=== PATIENT | male | born 1960 | race Caucasian/White ===

== ENCOUNTER → 2016-07-03 | Outpatient (CLI) | payer OTHER ==
[~2016-07-03] MED LIST: ACET-1256 PO; HYDR-4330 PO; OXYC1TAB3 PO
--- NOTE | 2016-07-03 15:13 | DIAGNOSTIC IMAGING REPORT ---
MRI right knee RIGHT LOWER EXT JOINT WITHOUT CLINICAL HISTORY: RT KNEE PAIN M25.561 STAT Right pain TECHNIQUE: MRI multi axial acquisition COMPARISON STUDY: None FINDINGS: Signal characteristics of the osseous structures are unremarkable throughout. There is no bone marrow replacing process. There is a small joint effusion. There are findings of mild peripatellar soft tissue edema. There is a small partial tear of the medial patellar retinaculum. Patellar groove is slightly shallow. There may be a trace of chondromalacia patella. There is a small synechiae of the suprapatellar bursa. Evaluation of the cruciate ligament shows the anterior as well as posterior cruciate ligament to be intact. The menisci demonstrate a normal-appearing lateral meniscus. Medial meniscus shows a very slight apical truncation. The collateral ligaments again are intact. IMPRESSION: 1. Small joint effusion with a small synechiae of the suprapatellar bursa. 2. Partial tear medial patellar retinaculum with a slight degree of chondromalacia patella. 3. Slight truncation apex mid medial meniscus. Electronically signed by: Solitario Casanova M.D. 07/03/2016 3:11 PM Dictated Date/Time: 07/03/2016 3:05 PM
== END | disposition home or self-care (01) ==
LOC: C.MRI 13:51
DX: M25.561 Pain in right knee (principal)

== ENCOUNTER → 2016-07-19 | Outpatient (CLI) | payer OTHER | END | disposition home or self-care (01) | LOC: C.CPL 14:11 | PROVIDERS: ATTEND Orthopaedic Surgery | DX: S83.231A Complex tear of medial meniscus, current injury, right knee, initial encounter (principal); X58.XXXA Exposure to other specified factors, initial encounter ==

== ENCOUNTER 2016-08-31 21:15 | Emergency (ER) | payer OTHER ==
[~2016-08-31] VITALS: Ht 172.7 cm; Wt 128.0 kg
[2016-08-31 21:23] VITALS: TEMP 36.7; Ht 172.7 cm; Wt 128.0 kg
[2016-08-31] MEDS ORDERED: ACET-1256 PO (22:15)
[2016-08-31] MEDS ORDERED: HYDR-4330 PO (22:15)
--- NOTE | 2016-08-31 22:32 | DIAGNOSTIC IMAGING REPORT ---
RIGHT KNEE 3 VIEWS CLINICAL HISTORY: right knee pain Right pain COMPARISON: None. DISCUSSION: The bones and joint spaces appear intact. There is no evidence of fracture, dislocation or bony disease. There is no evidence for soft tissue swelling. IMPRESSION: Negative study. Electronically signed by: Solitario Casanova M.D. 08/31/2016 10:31 PM Dictated Date/Time: 08/31/2016 10:28 PM
[2016-08-31 22:52] VITALS: BP 146/84; PULSE 94; O2SAT 95
[2016-08-31] MEDS ORDERED: OXYC1TAB3 PO (22:52)
[2016-08-31] MEDS ORDERED: OXYCODONE IR HOME PACK PO ONE (23:00)
--- NOTE | 2016-09-01 00:44 | EMERGENCY ROOM VISIT NOTE ---
ED Visit Note First contact with patient: 21:37 CHIEF COMPLAINT: knee pain HISTORY OF PRESENT ILLNESS: This 55-year-old male patient presents to the emergency department with pain in the right knee slowly worsening over the past 4 days. The patient has a recent history of meniscus repair of the right knee last month. The patient just returned to work 4 days ago, and is now with increased activity. He has had increased pain medially but does not report distinct injury or trauma. The patient is able to ambulate today, but this is becoming more difficult. He has not had fall or new injury. There is no significant redness or swelling. No numbness or tingling. He rates his current pain a 7/10. REVIEW OF SYSTEMS: A 6 system review of systems was completed with positives and pertinent negatives listed in the HPI. ALLERGIES: No known allergies MEDICATIONS: No chronic medications PMH: Otherwise healthy SOCIAL HISTORY: Employed and lives locally PHYSICAL EXAM: Vital Signs: Reviewed Nurse's notes, vital signs stable. GENERAL : White male, no acute distress, but appears in pain, well-developed, well- nourished. MENTAL STATUS: Alert, oriented to person place and time, and cooperative. MUSCULOSKELETAL: The right knee is not swollen. There is no ecchymosis. There is no joint effusion present. The patient is tender medially. There is medial joint line tenderness. The patella does not subluxate. Range of motion is normal. Strength of the quads and hamstrings is 5/ 5. Yoon's is negative. Vish's and Anterior Drawer tests are negative. There is no laxity with varus and valgus stressing. The foot and toes are warm and well-perfused. Dorsalis pedis pulse 2+. Sensation to pain and light touch is intact. Capillary refill less than 2 seconds. RIGHT KNEE 3 VIEWS CLINICAL HISTORY: right knee pain Right pain COMPARISON: None. DISCUSSION: The bones and joint spaces appear intact. There is no evidence of fracture, dislocation or bony disease. There is no evidence for soft tissue swelling. IMPRESSION: Negative study. EMERGENCY DEPARTMENT COURSE: Physical exam and history were performed. Nursing notes and EMR were reviewed. The patient has right knee pain and swelling worsening over the past 4 days. He does have a recent meniscus repair to this knee. X-ray was obtained and does not show acute bony M Lizbet. I discussed options of care with the patient. He will be placed in a knee immobilizer and provided crutches. The patient will be given a short course of oxycodone and instructions to follow with his orthopedist for further care and management. The patient was otherwise invited back to the ER with any new, worsening, or concerning symptoms. Current/Historical Medications Scheduled Oxycodone Immediate Rel Tab (Roxicodone Ir), 1-2 TAB PO Q6 Scheduled PRN Acetaminophen (Tylenol), 1,000 MG PO UD PRN for Pain Hydrocodone-Acetaminophen (Lortab 5-325 mg), 1-2 TABS PO Q4-6HRS PRN for Pain Allergies Coded Allergies: No Known Allergies (Verified Allergy, Unknown, 12/28/02) Vital Signs Date Time Temp Pulse Resp B/P Pulse Ox O2 Delivery O2 Flow Rate FiO2 08/31/16 22:52 94 18 146/84 95 08/31/16 21:23 36.7 104 20 161/98 94 Room Air Medications Administered Medications (Trade) Dose Ordered Sig/Raman Route Start Time Stop Time Status Last Admin Dose Admin Oxycodone HCl (Roxicodone Immediate Rel 5MG Home Pack) 1 homepack UD ONCE PO 08/31/16 23:00 08/31/16 23:01 DC 08/31/16 22:59 1 HOMEPACK Departure Information Impression Primary Impression: Right knee pain Dispostion Home / Self-Care Condition GOOD Prescriptions Oxycodone Immediate Rel Tab (ROXICODONE IR) 5 Mg Tab 1-2 TAB PO Q6, #24 TAB For initial treatment Prov: Harley Akbar PA-C 08/31/16 Referrals Bernardo Copeland M.D. Forms HOME CARE DOCUMENTATION FORM, IMPORTANT VISIT INFORMATION Patient Instructions My [facility] Additional Instructions You were seen and evaluated today on an emergency basis only. This is not a substitute for, or an effort to provide, complete comprehensive medical care. It is not possible to recognize and treat all injuries or illnesses in a single emergency department visit. For this reason it is recommended that you followup with [facility], Dr. Copeland's office, for ongoing care and evaluation. For baseline pain relief you may alternate ibuprofen and acetaminophen every 4 hours for pain control. Take 600 mg ibuprofen (Advil) and then 4 hours later take 1000 mg acetaminophen (Tylenol). Do not take more than 3000 mg acetaminophen in a single day. Oxycodone (OxyIR) 5mg: Take ONE or TWO pill every SIX hours for breakthrough pain. Avoid alcohol, operating machinery or dangerous equipment, working on ladders or roofs, DRIVING, or situations where being under the influence may be dangerous. It is recommended to use an [id number] stool softener such as Colace, 100mg twice daily while taking this medication to avoid constipation. Wear your knee immobilizer and use your crutches until otherwise instructed by orthopedics. You are welcome to return to the emergency department anytime with new, worsening, or concerning symptoms.
[2017-03-19] MEDS ORDERED: GUMMY VITAMINS (10:05)
[2017-03-19] MEDS ORDERED: IBUP-103 PO (10:05)
== END 2016-08-31 23:03 | disposition home or self-care (01) ==
LOC: C.EDB 21:15 → C.EDD 23:03
DX: M25.561 Pain in right knee (principal)

== ENCOUNTER → 2016-09-13 | Outpatient (CLI) | payer OTHER ==
[~2016-09-13] MED LIST changes: +GUMMY VITAMINS; +IBUP-103 PO
--- NOTE | 2016-09-13 11:49 | DIAGNOSTIC IMAGING REPORT ---
MRI right knee RIGHT LOWER EXT JOINT WITHOUT CLINICAL HISTORY: R KNEE PAIN Right pain TECHNIQUE: MRI multi axial acquisition COMPARISON STUDY: 07/03/2016 FINDINGS: Small residual joint effusion. Mild prepatellar soft tissue edema. Interval truncation and/or trimming of the apex of the mid medial meniscus. Interval tear of the inferior surface posterior horn of the medial meniscus. Interval focal loss of articular services of the posterior central aspect of the medial femoral condyle. This has a greatest linear extent of 1 cm. Cruciate ligaments remain intact. Lateral meniscus is unremarkable. Appears to be again a sprain of the medial collateral complex. A slight degree of chondromalacia patella persists and is unchanged. IMPRESSION: 1. Interval apparent surgical trimming of the apex medial meniscus. 2. Interval tear posterior horn medial meniscus. 3. Interval focal loss of articular services of the posterior central aspect of the medial femoral condyle with a maximum cross-sectional dimension of 1 cm 4. Sprain medial collateral ligament complex. 5. Small joint effusion. Electronically signed by: Solitario Casanova M.D. 09/13/2016 11:48 AM Dictated Date/Time: 09/13/2016 11:20 AM
== END | disposition home or self-care (01) ==
LOC: C.MRI 10:27
DX: S83.241A Other tear of medial meniscus, current injury, right knee, initial encounter (principal); S83.411A Sprain of medial collateral ligament of right knee, initial encounter; X58.XXXA Exposure to other specified factors, initial encounter; M25.461 Effusion, right knee

== ENCOUNTER → 2017-03-30 | Outpatient (CLI) | payer OTHER ==
[~2017-03-30] MED LIST changes: -HYDR-4330 PO; -OXYC1TAB3 PO
--- NOTE | 2017-03-30 15:41 | DIAGNOSTIC IMAGING REPORT ---
BONE SCAN WHOLE BODY HISTORY: Prostate carcinoma PROSTATE CA C61 RADIOTRACER: 25.4 mCi Tc-99m MDP STUDY/IMAGES: Planar anterior and posterior whole body imaging was performed 3 hours following the intravenous administration of radiotracer. COMPARISON: None. FINDINGS: Considerable degenerative activity of the right knee. Bilateral renal activity is present. No evidence for metastatic bone disease by bone scan criteria. No abnormal soft tissue activity characteristics. IMPRESSION: 1. No evidence for metastatic bone disease. 2. Degenerative activity right knee. The above report was generated using voice recognition software. It may contain grammatical, syntax or spelling errors. Electronically signed by: Solitario Casanova M.D. 03/30/2017 3:40 PM Dictated Date/Time: 03/30/2017 3:38 PM
== END | disposition home or self-care (01) ==
LOC: C.NUCL 11:50
PROVIDERS: ATTEND Radiology Radiation Oncology
DX: C61 Malignant neoplasm of prostate (principal)

== ENCOUNTER 2017-05-08 05:33 | Inpatient (IN) | payer OTHER ==
[2017-04-27 14:15] VITALS: Ht 172.7 cm; Wt 135.8 kg
--- NOTE | 2017-04-27 14:56 | PAT Medication Instructions ---
Service Date Apr 27, 2017. Current Home Medication List Acetaminophen (Tylenol), 1,000 MG PO UD PRN for Pain Ibuprofen Tab (Advil), 200 MG PO BID Medication Instructions For Your Scheduled Surgery - Check with surgeon for instructions: Ibuprofen Tab (Advil), 200 MG PO BID - Take the following medications the morning of surgery with a sip of water: Acetaminophen (Tylenol), 1,000 MG PO UD PRN for Pain (oksay to take up to 4 hours prior to surgery if needed) - Take the following medications as scheduled the night before surgery: Acetaminophen (Tylenol), 1,000 MG PO UD PRN for Pain (if needed) If you have any questions please call us at [phone] or [phone] or [phone]
[2017-04-27 15:15] LABS: BASO % 0.6 %; BASO ABS # 0.05 K/uL (0-0.2); EOS % 1.9 %; EOS ABS # 0.15 K/uL (0-0.5); HEMATOCRIT 49.6 % (42-52); HEMOGLOBIN 17.7 g/dL (14.0-18.0); IG# 0.01 K/uL (0.00-0.02); LYMPH % 32.7 %; LYMPH ABS # 2.58 K/uL (1.2-3.4); MEAN CELL VOLUME 94.1 fL (80-100); MEAN CORPUSCULAR HEMOGLOBIN 33.6 pg (25-34); MEAN CORPUSCULAR HGB CONC 35.7 g/dl (32-36); MEAN PLATELET VOLUME 11.2 fL (7.4-10.4); MONO % 8.4 %; MONO ABS # 0.66 K/uL (0.11-0.59); NEUT % 56.3 %; NEUT ABS # 4.44 K/uL (1.4-6.5); PLATELET COUNT 164 K/uL (130-400); RED CELL DISTRIBUTION WIDTH CV 13.6 % (11.5-14.5); RED CELL DISTRIBUTION WIDTH SD 46.8 fL (36.4-46.3); WHITE BLOOD COUNT 7.89 K/uL (4.8-10.8)
--- NOTE | 2017-04-27 15:23 | DIAGNOSTIC IMAGING REPORT ---
CHEST 2 VIEWS ROUTINE HISTORY: Preop. COMPARISON: None. FINDINGS: The lungs are clear. Cardiac silhouette is normal in size. No pleural effusions. No pneumothorax. IMPRESSION: No acute process. Electronically signed by: Cortez Ying M.D. 04/27/2017 3:22 PM Dictated Date/Time: 04/27/2017 3:21 PM
[2017-04-27 16:04] LABS: ALBUMIN 3.7 gm/dl (3.4-5.0); CALCIUM 9.1 mg/dl (8.5-10.1); CREATININE 0.81 mg/dl (0.60-1.40); POTASSIUM 3.9 mmol/L (3.5-5.1)
[2017-04-27 16:07] LABS: TOTAL PROTEIN 7.4 gm/dl (6.4-8.2)
[~2017-05-08] VITALS: Ht 172.7 cm; Wt 135.8 kg
[2017-05-08] VITALS (10 sets, daily range): BP systolic 114–136; BP diastolic 67–78; PULSE 80–107; TEMP 36.6–37.1; O2SAT 92–95
[~2017-05-08 05:33] MED LIST changes: -GUMMY VITAMINS
[2017-05-08] MEDS ORDERED: AMOX1TAB43 (05:58)
[2017-05-08] MEDS ORDERED: HEPARIN SOD 5000 UNIT/0.5 ML CARP SQ SCH (06:00)
[2017-05-08] MEDS ORDERED: LACTATED RINGER'S 1000ML 1,000 ML IV SCH (06:00)
[2017-05-08] MEDS ORDERED: CEFAZOLIN 3000MG IV PUSH 15 ML IV SCH (06:00)
[2017-05-08] MEDS ORDERED: LIDOCAINE HCL 2% 2 ML VIAL (20MG/ML) ONE (06:47)
[2017-05-08] MEDS ORDERED: DEXAMETHASONE SOD INJ 4 MG/ML VIAL ONE (06:47)
[2017-05-08] MEDS ORDERED: PROPOFOL IV EMULSION 10 MG/ML 20 ML VIAL IV ONE (06:48)
[2017-05-08] MEDS ORDERED: ROCURONIUM BROMIDE 10 MG/ML 5 ML VIAL IV ONE (06:48)
[2017-05-08] MEDS ORDERED: NEOSTIGMINE METHYLSULFATE 5 MG/5 ML SYR ONE (06:48)
[2017-05-08] MEDS ORDERED: ONDANSETRON INJ 2 MG/ML 2 ML VIAL ONE (06:48)
[2017-05-08] MEDS ORDERED: FENTANYL CITRATE INJ 50 MCG/1 ML 2 ML VIAL ONE ×4 (06:48→10:46)
[2017-05-08] MEDS ORDERED: GLYCOPYRROLATE INJ 0.2 MG/ML VIAL ONE (06:48)
[2017-05-08] MEDS ORDERED: MIDAZOLAM HCL 1 MG/ML 2ML VIAL ONE (06:48)
--- NOTE | 2017-05-08 07:16 | History & Physical Bridge Note ---
H&P Re-Evaluation Bridge Note: I have examined the patient, reviewed the History & Physical and in the interval since the performance of the History & Physical I have noted the following changes of clinical significance: No changes noted
--- NOTE | 2017-05-08 07:25 | History and Physical ---
History & Physical Date May 08, 2017. History of Present Illness The patient is a 56 year old male with complaints of prostate cancer - recent sinusitis treated with abx, largely recovered now - no prior abdominal surgeries - no current pain - no voiding complaints Vital Signs Past 12 Hours Date Time Temp Pulse Resp B/P (MAP) Pulse Ox O2 Delivery O2 Flow Rate FiO2 05/08/17 06:05 36.6 94 18 136/76 (96) 94 Room Air Past Medical/Surgical History Medical Problems: (1) Prostate cancer Additional History Hepatic Disease: No Endocrine Disorder: No Kidney Disease: No Hypertension: No Heart Disease: No Bleeding Tendencies: No Infectious Diseases: No Allergies Coded Allergies: No Known Allergies (Verified , 05/08/17) Home Medications Scheduled Amoxicillin & Pot Clavulanate (Amoxicillin/Potassium Cla), 1 TAB Q12 Ibuprofen Tab (Advil), 200 MG PO BID Scheduled PRN Acetaminophen (Tylenol), 1,000 MG PO UD PRN for Pain Physical Examination Skin: warm/dry Eyes: normal inspection ENT: normal ENT inspection Head: normocephalic Neck: supple Respiratory/Chest: lungs clear Cardiovascular: regular rate, rhythm, no edema Abdomen / GI: normal bowel sounds Back: normal inspection Extremities: normal inspection Genitourinary - Male: normal male genitalia Neurologic/Psych: no motor/sensory deficits, alert, normal reflexes, oriented x 3 Addiitonal Comments: obese; no surgical scars Diagnosis Prostate Cancer Plan of Treatment Robotic prostatectomy with lymph node dissection - reviewed the plan, risks, and benefits as discussed at length during our in- office visits.
[2017-05-08] MEDS ORDERED: BUPIVACAINE 0.5 % 5 MG/1 ML MPF 30ML VIAL ONE (07:30)
[2017-05-08] MEDS ORDERED: BELLADONNA/OPIUM SUPP 60 MG SUPP PR ONE (07:52)
[2017-05-08] MEDS ORDERED: HYDROmorphone INJ 2 MG/ML SYR/VIAL ONE (08:15)
[2017-05-08] MEDS ORDERED: HYDROmorphone INJ 2 MG/ML SYR/VIAL IV PRN (08:45)
[2017-05-08] MEDS ORDERED: ONDANSETRON INJ 2 MG/ML 2 ML VIAL IV PRN ×2 (08:45→10:45)
[2017-05-08] MEDS ORDERED: ATROPINE SULFATE 0.1 MG/ML 5ML SYR IV PRN (08:45)
[2017-05-08] MEDS ORDERED: PHENYLEPHRINE 100MCG/ML 5ML SYR IV PRN (08:45)
[2017-05-08] MEDS ORDERED: EpHEDrine SULFATE INJ 50 MG/ML AMP IV PRN (08:45)
[2017-05-08] MEDS ORDERED: SUCCINYLCHOLINE 100MG/5ML SYR IV ONE (09:11)
[2017-05-08] MEDS ORDERED: LARYING-O-JET KIT (LTA) ONE (09:31)
[2017-05-08] MEDS ORDERED: ACETAMINOPHEN 1000 MG/100 ML IV IV ONE (10:19)
[2017-05-08] MEDS ORDERED: PHENYLEPHRINE 100MCG/ML 5ML SYR ONE (10:32)
[2017-05-08] MEDS ORDERED: KETOROLAC TROMETHAMINE 30 MG/ML VIAL IV. PRN (10:45)
[2017-05-08] MEDS ORDERED: OXYBUTYNIN CHLORIDE 5 MG TAB PO PRN (10:45)
[2017-05-08] MEDS ORDERED: FLOSEAL HEMOSTATIC MATRIX 10ML TOP ONE (10:45)
[2017-05-08] MEDS ORDERED: HYDROmorphone INJ 1 MG/ML SYR IV PRN (10:45)
--- NOTE | 2017-05-08 11:05 | [facility] Operative Report ---
Operative Report Operative Date May 08, 2017. Pre-Operative Diagnosis Prostate Cancer Post-Operative Diagnosis Same as preoperative Procedure(s) Performed Robot Assisted Laparoscopic Prostatectomy, Removal of Pelvic Lymph Nodes Surgeon Dr. Brenton Bender Paving Machine Operator Surgeon(s) PATRICK Zamora Estimated Blood Loss 350mL Findings As per dictation Specimens Permanent Specimens: A. Periprostatic Fat B. Prostate and Seminal Vesicles Fresh Specimens: C. Left Pelvic Lymph Node D. Right Pelvic Lymph Node Drains RASHAAD; baker Anesthesia Gen Complication(s) None Disposition Recovery Room / PACU (stable) Indications Prostate Ca Description of Procedure The patient was identified in the preoperative holding area, appropriate informed consents were reviewed and completed, and he was transported to the operating suite. Subcutaneous heparin was administered in the pre-operative holding area. Upon arrival in the operating suite, he received appropriate antibiotics and general anesthesia. He was positioned in dorsal lithotomy, a B& O suppository was inserted after digital rectal exam, and he was prepped and draped in standard fashion. A Baker catheter was inserted in the sterile field. A Veress needle was passed per umbilicus with uniform insufflation of the abdomen to 15mmHg. He was placed in steep Trendelenburg position. A periumbilical incision was then made to accommodate a 12mm Visiport with 10mm 0degree laparoscope. Inspection of the abdomen was carried out, and there was no evidence of traumatic entry or injury secondary to the Veress needle. After confirming a clear anterior abdominal wall, ports were subsequently placed in standard robotic prostatectomy fashion without incident. To begin the robotic portion of the case, the left lateral aspect of the sigmoid was mobilized off of the left pelvic side wall to allow the pouch of Bernardo to be appropriately visualized. The medial umbilical ligaments were then controlled with bipolar electrocautery just inferior to the umbilicus. Following cauterization, they were divided utilizing monopolar cautery. A peritoneal incision was carried from this location to the medial aspect of the internal inguinal rings bilaterally with care to avoid opening through the ring. This incision was concluded when the vas deferens was reached. Dissection of the bladder and prostate off of the posterior aspect of the pubic arch was completed allowing full visualization of the prostate. The fat overlying the prostate was removed en bloc and passed off the table as a specimen labeled "periprostatic fat". The endopelvic fascia was cleared during this portion of the procedure, and subsequently opened - first on the right and then the left. The incision through the endopelvic fascia began near the prostate-bladder junction and was carried to the apex with extreme care to preserve all lateral levator musculature as well as the periurethral musculature and sphincter complex. The puboprostatic ligaments were thinned slightly bilaterally before placing a 0-Vicryl figure of 8 stitch around the DVC. The lymph node dissection was then conducted. External iliac vessles were identified on the pelvic side wall. The packet of fat and lymphatic tissue that resides just under the iliac vein was elevated and off of the vein with a split and roll technique. The packet was dissected laterally to the circumflex vein and distally to the obturator nerve which was preserved. The proximal aspect of the packet was carried towards the bifurcation of the iliac vessels. A combination of monopolar and bipolar cautery were used to assist with control. Clips were placed at the proximal and distal aspects of the packet prior to transection. After completing the dissection on both sides, the packets were collected and passed off of the table as specimens labeled "pelvic lymph nodes". My attention then returned to the prostate, with identification of the bladder neck aided by gentle traction on the Baker catheter and lateral to medial pressure at the presumed level of the bladder neck with the robotic instruments. An anterior cystotomy was made, the Baker balloon deflated and the catheter guided through the incision to allow anterior retraction. I attempted to preserve maximal bladder neck musculature as I circumferentially dissected around the bladder neck. After incision through the posterior aspect of the mucosa, the dissection was carried through detrusor muscle until the bilateral ampullae of the vasa were identified. After identifying the vasa, I developed a pedicle packet on each side to help flatten the dissection and placed Weck clips across the most proximal and superficial aspects of these packets adjacent to the bladder. The packets were then divided allowing easier visualization of the vasa and posterior aspect of the prostate. Vasa were each dissected before being transected. These were used to further aide in anterior retraction as the bilateral seminal vesicals were dissected with very judicious use of bipolar electrocautery. Following SV dissection, a posterior plane behind the prostate was developed - splitting Denonvilliers's fascia. This dissection was carried as far as possible towards the apex as well as far as possible laterally. An incision in the lateral prostatic fascia was then made bilaterally to facilitate control of the vascular pedicles. The pedicles were each controlled with a series of Weck clips. The neurovascular bundles were identified and preserved. There was a more cautious approach to the right side than the left secondary to the pathology. The apical attachments of the prostate were remaining at that stage. The DVC was divided with bipolar electrocautery. Melinda-prostatic tissue incised with sharp dissection and monopolar cautery. Maximal urethral length was preserved before dividing the urethra sharply. The prostate was entirely freed at that point, and collected in an EndoCatch bag before being moved out of the field of vision. Hemostasis was confirmed and anastomosis of the bladder and urethra was completed utilizing a double armed V- Lock stitch. A new Baker catheter was inserted and the anastomosis tested with irrigation. There was no evidence of leak. FloSeal coagulant was placed around the anastomosis. The robot was undocked, the specimen extracted through expansion of the melinda- umbilical camera port. The fascia was closed with a series of 0-PDS figure of 8 stitches. The right personal injury legal assistant port was closed in two layers - with a figure of 8 0-Vicryl to reapproximate the fascia followed by 4-0 Monocryl to close the skin. Monocryl was used to close all other skin incisions. All wounds were dressed with Dermabond. The case was concluded and the patient taken to the PACU in stable condition. I attest to the content of the Intraoperative Record and any orders documented therein. Any exceptions are noted below.
[2017-05-08 12:02] LABS: HEMATOCRIT 47.5 % (42-52); HEMOGLOBIN 16.5 g/dL (14.0-18.0); MEAN CELL VOLUME 94.6 fL (80-100); MEAN CORPUSCULAR HEMOGLOBIN 32.9 pg (25-34); MEAN PLATELET VOLUME 10.7 fL (7.4-10.4); PLATELET COUNT 222 K/uL (130-400); RED CELL DISTRIBUTION WIDTH CV 13.6 % (11.5-14.5); WHITE BLOOD COUNT 16.96 K/uL (4.8-10.8)
--- NOTE | 2017-05-08 12:09 | DIAGNOSTIC IMAGING REPORT ---
CHEST ONE VIEW PORTABLE HISTORY: sat 89% POST OP COMPARISON: Chest 04/27/2017. FINDINGS: The heart is normal in size. No pleural effusions. No pneumothorax. There are low lung volumes. Bibasilar linear densities. No evidence for pulmonary edema. IMPRESSION: Low lung volumes with bibasilar linear densities suggesting subsegmental atelectasis. Electronically signed by: Cortez Ying M.D. 05/08/2017 12:08 PM Dictated Date/Time: 05/08/2017 12:07 PM
--- NOTE | 2017-05-08 12:26 | Anesthesiology Progress Note ---
Anesthesia Post Op Note Date & Time May 08, 2017 at 12:25 Vital Signs Pain Intensity: 0 Vital Signs Past 12 Hours Date Time Temp Pulse Resp B/P (MAP) Pulse Ox O2 Delivery O2 Flow Rate FiO2 05/08/17 12:20 36.7 05/08/17 12:18 102 24 05/08/17 12:18 102 24 97 05/08/17 12:16 124/63 05/08/17 12:13 98 16 94 05/08/17 12:13 100 16 05/08/17 12:11 130/79 05/08/17 12:08 103 28 05/08/17 12:08 103 28 98 05/08/17 12:06 138/72 05/08/17 12:03 98 15 05/08/17 12:03 98 15 100 05/08/17 12:02 125/92 05/08/17 11:59 101 15 05/08/17 11:59 102 15 100 05/08/17 11:56 130/67 05/08/17 11:54 102 16 05/08/17 11:54 103 16 99 05/08/17 11:53 120/65 05/08/17 11:51 106 18 99 05/08/17 11:51 102 18 05/08/17 11:47 120/73 05/08/17 11:46 103 14 05/08/17 11:46 103 14 97 05/08/17 11:42 103/72 05/08/17 11:41 104 18 97 05/08/17 11:41 104 18 05/08/17 11:40 104 21 05/08/17 11:40 104 21 97 05/08/17 11:36 109/61 05/08/17 11:35 100 19 98 05/08/17 11:35 100 19 05/08/17 11:32 97/53 05/08/17 11:30 103 19 95 05/08/17 11:30 103 19 05/08/17 11:26 147/79 05/08/17 11:25 104 17 88 05/08/17 11:25 104 17 05/08/17 11:21 113/76 05/08/17 11:20 104 21 05/08/17 11:20 105 21 89 05/08/17 11:17 133/84 05/08/17 11:15 106 19 05/08/17 11:15 106 19 88 05/08/17 11:12 101/64 05/08/17 11:10 105 14 92 05/08/17 11:10 105 14 05/08/17 11:10 37.2 103 16 101/64 92 Oxymask 15 05/08/17 06:05 36.6 94 18 136/76 (96) 94 Room Air Notes Mental Status: alert / awake / arousable, participated in evaluation Pt Amnestic to Procedure: Yes Nausea / Vomiting: adequately controlled Pain: adequately controlled Airway Patency, RR, SpO2: stable & adequate BP & HR: stable & adequate Hydration State: stable & adequate Anesthetic Complications: no major complications apparent
[2017-05-08 12:27] LABS: MEAN CORPUSCULAR HGB CONC 34.7 g/dl (32-36)
[2017-05-08 12:39] LABS: CALCIUM 8.7 mg/dl (8.5-10.1); CREATININE 1.03 mg/dl (0.60-1.40); POTASSIUM 4.1 mmol/L (3.5-5.1)
[2017-05-08] MEDS: LACTATED RINGER'S 1000ML 1,000 ML IV SCH ×2 (13:37→20:19)
[2017-05-08 14:33] LABS: PTT PATIENT 24.8 SECONDS (21.0-31.0)
[2017-05-08] MEDS: ACETAMINOPHEN/CODEINE 300/30MG TAB PO PRN (16:02)
[2017-05-08] MEDS: CEFAZOLIN IV 3,000 MG in SYRINGE 0 ML IV SCH ×2 (16:02→23:38)
[2017-05-08] MEDS: ACETAMINOPHEN 500 MG TAB PO SCH ×2 (18:09→23:38)
[2017-05-08] MEDS: HEPARIN SOD 5000 UNIT/0.5 ML CARP SQ SCH (19:21)
[2017-05-08] MEDS: DOCUSATE SODIUM 100 MG CAP PO SCH (20:51)
[2017-05-09] VITALS (7 sets, daily range): BP systolic 118–138; BP diastolic 72–82; PULSE 84–91; TEMP 36.7–37.6; O2SAT 91–96
[2017-05-09] MEDS: LACTATED RINGER'S 1000ML 1,000 ML IV SCH (04:34)
[2017-05-09] MEDS: HEPARIN SOD 5000 UNIT/0.5 ML CARP SQ SCH (06:10)
[2017-05-09] MEDS: ACETAMINOPHEN 500 MG TAB PO SCH ×2 (06:11→11:32)
[2017-05-09 06:53] LABS: BASO % 0.1 %; BASO ABS # 0.01 K/uL (0-0.2); EOS % 0.1 %; EOS ABS # 0.01 K/uL (0-0.5); HEMATOCRIT 40.3 % (42-52); HEMOGLOBIN 14.2 g/dL (14.0-18.0); IG# 0.04 K/uL (0.00-0.02); LYMPH % 15.8 %; LYMPH ABS # 2.16 K/uL (1.2-3.4); MEAN CELL VOLUME 94.2 fL (80-100); MEAN CORPUSCULAR HEMOGLOBIN 33.2 pg (25-34); MEAN CORPUSCULAR HGB CONC 35.2 g/dl (32-36); MEAN PLATELET VOLUME 10.8 fL (7.4-10.4); MONO % 10.3 %; MONO ABS # 1.41 K/uL (0.11-0.59); NEUT % 73.4 %; NEUT ABS # 10.02 K/uL (1.4-6.5); PLATELET COUNT 203 K/uL (130-400); RED CELL DISTRIBUTION WIDTH CV 13.7 % (11.5-14.5); WHITE BLOOD COUNT 13.65 K/uL (4.8-10.8)
[2017-05-09 07:18] LABS: CALCIUM 8.4 mg/dl (8.5-10.1); CREATININE 0.7 mg/dl (0.60-1.40); POTASSIUM 3.9 mmol/L (3.5-5.1)
[2017-05-09] MEDS: DOCUSATE SODIUM 100 MG CAP PO SCH (08:46)
[2017-05-09] MEDS: CEFAZOLIN IV 3,000 MG in SYRINGE 0 ML IV SCH (08:50)
--- NOTE | 2017-05-09 08:59 | Anesthesiology Progress Note ---
Anesthesia Post Op Note Date & Time May 09, 2017 at 08:58 Vital Signs Pain Intensity: 2.0 Vital Signs Past 12 Hours Date Time Temp Pulse Resp B/P (MAP) Pulse Ox O2 Delivery O2 Flow Rate FiO2 05/09/17 07:52 91 Room Air 05/09/17 07:35 37.6 84 16 130/82 (98) 91 Room Air 05/09/17 07:25 Room Air 05/09/17 03:38 37.2 05/09/17 03:35 37.5 89 16 133/80 (97) 91 CPAP 05/08/17 23:53 CPAP 05/08/17 23:10 37.1 84 18 122/68 (86) 92 Room Air Notes Mental Status: alert / awake / arousable, participated in evaluation Pt Amnestic to Procedure: Yes Nausea / Vomiting: adequately controlled Pain: adequately controlled Airway Patency, RR, SpO2: stable & adequate BP & HR: stable & adequate Hydration State: stable & adequate Anesthetic Complications: no major complications apparent
[2017-05-09] MEDS ORDERED: AMOXICILLIN/CLAVULANATE TAB 875 MG TAB PO SCH (09:00)
--- NOTE | 2017-05-09 09:10 | Progress Note ---
Subjective Date of Service: May 09, 2017. Subjective Pt evaluation today including: conversation w/ patient, chart review, lab review Voiding: baker catheter in place (patent, draining clear, yellow urine) 56 yo male s/p RALRP. Pt reports some incisional soreness this morning, but otherwise feels well. Denies n/v. + flatus. Denies BM. Labs stable. I&Os acceptable. Problem List Medical Problems: (1) Right knee pain Status: Acute Review of Systems Constitutional: No fever, No chills Respiratory: No shortness of breath Cardiac: No chest pain Abdomen: No pain, No nausea, No vomiting Male : No hematuria Heme: No abnormal bleeding/bruising Objective Vital Signs Date Time Temp Pulse Resp B/P (MAP) Pulse Ox O2 Delivery O2 Flow Rate FiO2 05/09/17 07:52 91 Room Air 05/09/17 07:35 37.6 84 16 130/82 (98) 91 Room Air 05/09/17 07:25 Room Air 05/09/17 03:38 37.2 05/09/17 03:35 37.5 89 16 133/80 (97) 91 CPAP 05/08/17 23:53 CPAP 05/08/17 23:10 37.1 84 18 122/68 (86) 92 Room Air 05/08/17 19:33 36.7 80 18 128/67 (87) 94 Room Air 05/08/17 18:14 94 Room Air 05/08/17 15:54 36.6 86 16 135/76 (95) 95 Nasal Cannula 4.0 05/08/17 15:20 92 Nasal Cannula 4.0 05/08/17 14:50 85 20 116/72 (87) 92 05/08/17 13:50 107 20 119/73 (88) 93 05/08/17 13:20 102 20 132/78 (96) 93 05/08/17 12:50 36.7 94 18 114/72 (86) 93 Nasal Cannula 4.0 05/08/17 12:50 Nasal Cannula 4.0 05/08/17 12:31 99/65 05/08/17 12:29 102 18 96 05/08/17 12:29 102 18 05/08/17 12:27 132/59 05/08/17 12:24 105 21 05/08/17 12:24 104 21 93 1/9/18 12:21 135/90 18 12:20 36.7 05/08/17 12:19 100 19 05/08/17 12:19 100 19 95 18 12:18 102 24 05/08/17 12:18 102 24 97 05/08/17 12:16 124/63 05/08/17 12:13 98 16 94 05/08/17 12:13 100 16 05/08/17 12:11 130/79 05/08/17 12:08 103 28 05/08/17 12:08 103 28 98 05/08/17 12:06 138/72 05/08/17 12:03 98 15 05/08/17 12:03 98 15 100 05/08/17 12:02 125/92 05/08/17 11:59 101 15 05/08/17 11:59 102 15 100 05/08/17 11:56 130/67 05/08/17 11:54 102 16 05/08/17 11:54 103 16 99 05/08/17 11:53 120/65 05/08/17 11:51 106 18 99 05/08/17 11:51 102 18 05/08/17 11:47 120/73 05/08/17 11:46 103 14 05/08/17 11:46 103 14 97 05/08/17 11:42 103/72 05/08/17 11:41 104 18 97 05/08/17 11:41 104 18 05/08/17 11:40 104 21 05/08/17 11:40 104 21 97 05/08/17 11:36 109/61 05/08/17 11:35 100 19 98 18 11:35 100 19 18 11:32 97/53 05/08/17 11:30 103 19 95 18 11:30 103 19 05/08/17 11:26 147/79 18 11:25 104 17 88 18 11:25 104 17 18 11:21 113/76 05/08/17 11:20 104 21 18 11:20 105 21 89 18 11:17 133/84 18 11:15 106 19 05/08/17 11:15 106 19 88 05/08/17 11:12 101/64 05/08/17 11:10 105 14 92 05/08/17 11:10 105 14 05/08/17 11:10 37.2 103 16 101/64 92 Oxymask 15 Physical Exam General Appearance: no apparent distress, + obese Eyes: normal inspection ENT: hearing grossly normal Neck: no JVD Respiratory/Chest: no respiratory distress, no accessory muscle use Cardiovascular: no JVD Abdomen: + pertinent finding (abdominal incisions c/d/i; RASHAAD draining sanguinous fluid) Extremities: normal inspection Neurologic/Psychiatric: alert, normal mood/affect, oriented x 3 Skin: normal color Laboratory Results Last 24 Hours Test 05/08/17 11:49 05/08/17 14:14 05/09/17 06:31 White Blood Count 16.96 K/uL 13.65 K/uL Red Blood Count 5.02 M/uL 4.28 M/uL Hemoglobin 16.5 g/dL 14.2 g/dL Hematocrit 47.5 % 40.3 % Mean Corpuscular Volume 94.6 fL 94.2 fL Mean Corpuscular Hemoglobin 32.9 pg 33.2 pg Mean Corpuscular Hemoglobin Concent 34.7 g/dl 35.2 g/dl RDW Standard Deviation 47.0 fL 47.0 fL RDW Coefficient of Variation 13.6 % 13.7 % Platelet Count 222 K/uL 203 K/uL Mean Platelet Volume 10.7 fL 10.8 fL Sodium Level 135 mmol/L 137 mmol/L Potassium Level 4.1 mmol/L 3.9 mmol/L Chloride Level 103 mmol/L 102 mmol/L Carbon Dioxide Level 26 mmol/L 29 mmol/L Anion Gap 6.0 mmol/L 6.0 mmol/L Blood Urea Nitrogen 17 mg/dl 12 mg/dl Creatinine 1.03 mg/dl 0.70 mg/dl Est Creatinine Clear Calc Drug Dose 108.0 ml/min 158.9 ml/min Estimated GFR () 93.7 122.3 Estimated GFR (Non- 80.8 105.5 BUN/Creatinine Ratio 16.3 17.3 Random Glucose 162 mg/dl 112 mg/dl Calcium Level 8.7 mg/dl 8.4 mg/dl Prothrombin Time 11.0 SECONDS Prothromb Time International Ratio 1.0 Activated Partial Thromboplast Time 24.8 SECONDS Partial Thromboplastin Ratio 1.0 Neutrophils (%) (Auto) 73.4 % Lymphocytes (%) (Auto) 15.8 % Monocytes (%) (Auto) 10.3 % Eosinophils (%) (Auto) 0.1 % Basophils (%) (Auto) 0.1 % Neutrophils # (Auto) 10.02 K/uL Lymphocytes # (Auto) 2.16 K/uL Monocytes # (Auto) 1.41 K/uL Eosinophils # (Auto) 0.01 K/uL Basophils # (Auto) 0.01 K/uL Immature Granulocyte % (Auto) 0.3 % Immature Granulocyte # (Auto) 0.04 K/uL Assessment and Plan POD #1 s/p RALRP. AFVSS. Pt doing well post-op. Will advance to a mechanical soft diet this morning. Encourage use of IS. Encourage ambulation to hallway. Hep lock IVF after breakfast. Possible d/c home after lunch if tolerating PO, ambulating without difficulty, and pain controlled. The pt was seen and assessed with Dr. Bender this morning. Discharge planning: home
[2017-05-09] MEDS ORDERED: CIPR1TAB10 PO (09:14)
[2017-05-09] MEDS ORDERED: DTR5 PO (09:14)
[2017-05-09] MEDS ORDERED: CLC100 PO (09:14)
[2017-05-09] MEDS ORDERED: ACET-749 PO (09:14)
--- NOTE | 2017-05-09 09:16 | Discharge Instructions ---
Discharge Instructions Date of Service May 09, 2017. Admission Reason for Admission: Prostate Cancer Discharge Discharge Diagnosis / Problem: Prostate Cancer Discharge Goals Goal(s): Decrease discomfort, Improve disease control, Improve nutritional status, Therapeutic intervention Activity Recommendations Activity Limitations: per Instructions/Follow-up section Shower/Bathe: tomorrow . Instructions / Follow-Up Instructions / Follow-Up 1. Do not lift >15lbs x 6 weeks. 2. No heavy exercise x 6 weeks. You may engage in light activity such as walking and stairs as tolerated. 3. No sexual intercourse until cleared by Dr. Bender. 4. Do not drive x [address] while taking narcotics. 5. You have been prescribed the antibiotic Ciprofloxacin. Start this antibiotic 2 days prior to baker catheter removal Finish all of the antibiotic you have been prescribed. 6. Immediately call our office at [phone] if your catheter is removed for any reason. 7. Follow-up as scheduled. Please call our office at [phone] if you need to reschedule for any reason. 8. Do not take Tylenol in addition to Tylenol #3. Take 1 or the other, but not both together. . Current Hospital Diet Patient's current hospital diet: AHA Diet (Heart Healthy) Discharge Diet Recommended Diet: AHA Diet (Heart Healthy) Procedures Procedures Performed: Robot Assisted Laparoscopic Prostatectomy, Removal of Pelvic Lymph Nodes Pending Studies Studies pending at discharge: yes (prostate and lymph node) List of pending studies: prostate and lymph node pathology Medical Emergencies . Who to Call and When: Medical Emergencies: If at any time you feel your situation is an emergency, please call 911 immediately. . Non-Emergent Contact Non-Emergency issues call your: Urologist Call Non-Emergent contact if: temperature is above 101.5, your pain is not controlled, your pain is worsening, your pain is unusual for you, your pain is concerning you, wound has increased drainage, wound has increased redness, wound has increased pain, you have any medication questions . . "Provider Documentation" section prepared by Layla Maradiaga. . VTE Core Measure Inpt VTE Proph given/why not?: Unfractionated heparin SQ, SCD's [place] Drug Monitoring Program Search Results: patient reviewed within database, no issues identified
[2017-05-09] MEDS ORDERED: NURSING VERBAL MED ORDER ONE (11:15)
[2017-05-09] MEDS: ACETAMINOPHEN/CODEINE 300/30MG TAB PO PRN (11:32)
== END 2017-05-09 16:25 | disposition home or self-care (01) | DRG 714 ==
LOC: C.ACU 05:33 → C.MSN 10:49 → ENRESERV 12:04
PROVIDERS: ADMIT Urology; ATTEND Urology
PROC: 07BC4ZZ Excision of Pelvis Lymphatic, Percutaneous Endoscopic Approach (ICD-10-PCS; principal; 2017-05-08 07:30)
PROC: 0VT08ZZ Resection of Prostate, Via Natural or Artificial Opening Endoscopic (ICD-10-PCS; principal; 2017-05-08 07:30)
DX: C61 Malignant neoplasm of prostate (principal)

== ENCOUNTER → 2017-06-18 | Outpatient (CLI) | payer OTHER ==
[~2017-06-18] MED LIST changes: +ACET-749 PO; +AMOX1TAB43; +CIPR1TAB10 PO; +CLC100 PO; +DTR5 PO
== END ==
LOC: C.LAB 12:25
PROVIDERS: ATTEND Urology
DX: C61 Malignant neoplasm of prostate (principal)

== ENCOUNTER → 2017-07-31 | Outpatient (CLI) | payer OTHER | END | disposition home or self-care (01) | LOC: C.LAB 14:33 | PROVIDERS: ATTEND Urology | DX: C61 Malignant neoplasm of prostate (principal) ==

== ENCOUNTER → 2017-12-18 | Outpatient (CLI) | payer OTHER ==
[~2017-12-18] MED LIST changes: -ACET-749 PO; +ACET300T3 PO; -CIPR1TAB10 PO
== END | disposition home or self-care (01) ==
LOC: C.LAB 15:58
PROVIDERS: ATTEND Urology
DX: C61 Malignant neoplasm of prostate (principal)